=== PATIENT | male | born 1935 | race Hispanic/Latino ===

== ENCOUNTER 2020-11-17 08:46 | Outpatient (CLI) | payer MEDICARE ==
[2020-11-17 09:41] LABS: Blood Urea Nitrogen 10 mg/dL (9-20)
--- NOTE | 2020-11-17 10:53 | Cat Scan Report ---
CTA NECK WITH CONTRAST HISTORY: COMPARISON: None. TECHNIQUE: Routine CTA of the neck was performed. 3-D/MIP reformats were postprocessed. Percentage s tenosis is determined by direct quantitative measurements of diseased internal carotid artery diamete r compared with normal distal internal carotid artery reference segments or by criteria similar to NA SCET where applicable.All CT scans at this location are performed using CT dose reduction for ALARA b y means of automated exposure control CONTRAST: 100 ml of Omnipaque 350 FINDINGS: Aortic arch: No significant abnormality. Cervical vertebral arteries: No significant abnormality. Common carotid arteries: No significant abnormality. Carotid bifurcations: Right Carotid bifurcation: Approximately 2 cm long densely calcified atherosclerotic plaque (calcific ation thickness of 6 mm) in the right common carotid artery extending into proximal internal and exte rnal carotid artery; lumen of the right internal carotid artery is severely stenotic (over 80%); no a djacent inflammatory changes Left carotid bifurcation: Normal Cervical internal carotid arteries: No significant abnormality. Additional findings: Opacified left maxillary sinus IMPRESSION: 1. Right carotid bifurcation: 2 cm long densely calcified (calcification thickness 6 mm) plaque in th e distal right common carotid artery extending towards the both internal and external carotid artery is resulting in severe stenoses (80%) Left carotid bifurcation normal Signer Name: Alex Mason MD Signed: 11/17/2020 10:49 AM Workstation Name: [id number]
== END 2020-11-17 08:47 | disposition home or self-care (01) ==
LOC: CT 08:46
PROVIDERS: ATTEND Internal Medicine
DX: I65.21 Occlusion and stenosis of right carotid artery (principal)
CPT/HCPCS: 36415; 70498; 82565; 84520; Q9967

== ENCOUNTER 2021-08-25 06:01 | Observation (INO) | payer MEDICARE ==
--- NOTE | 2021-08-23 11:20 | Anesthesia Consultation ---
Anesthesia Consult and Med Hx Date of service: 08/25/21 - Airway Anesthetic Teeth Evaluation: Good ROM Head & Neck: Inadequate (Poor extension) Mental/Hyoid Distance: Adequate Mallampati Class: Class II Intubation Access Assessment: Probably Good - Pre-Operative Health Status ASA Pre-Surgery Classification: ASA3 Proposed Anesthetic Plan: General (Pt requests GA) Nerve Block: AC - Pulmonary Hx Smoking: Yes (STOPPED X 50-60 YRS) Hx Sleep Apnea: No (SARAH PRE SCREEN HIGH RISK) - Cardiovascular System Hx Hypertension: No Hx Peripheral Vascular Disease: Yes (CAROTID STENOSIS) - Central Nervous System Hx Psychiatric Problems: Yes (Depression) - Gastrointestinal Hx Gastroesophageal Reflux Disease: No - Hematic Hx Anemia: No - Other Systems Hx Cancer: No Hx Obesity: No - Additional Comments Anesthesia Medical History Comments: Cardiac clearance on chart
[~2021-08-25 06:01] MED LIST: ACETAMINOPHEN 325 MG TAB PO NR; CELECOXIB 200 MG CAP PO NR; LACTATED RINGERS 1,000 ML IV SCH; MAGNESIUM OXIDE 400 MG TAB PO NR; MIDAZOLAM 2 MG/2 ML INJ IV NR; PREGABALIN 50 MG CAP PO NR; fentaNYL 100 MCG/2 ML INJ IV NR
[2021-08-25] MEDS ORDERED: METOPROLOL TARTRATE 50 MG TAB PO ONE (07:14)
[2021-08-25] MEDS ORDERED: BUPIVACAINE/PF (0.5%) 5 MG/1 ML 30 ML VIAL INFILTRATI ONE ×2 (07:29→09:44)
[2021-08-25] MEDS ORDERED: TRANEXAMIC ACID 1,000 MG/10 ML ONE (07:29)
[2021-08-25] MEDS ORDERED: KETOROLAC 30 MG/1 ML INJ ONE ×2 (07:29→11:09)
[2021-08-25] MEDS ORDERED: methylPREDNISolone ACETATE 40 MG/1 ML INJ ONE (07:29)
[2021-08-25] MEDS ORDERED: METOPROLOL TARTRATE 25 MG TAB PO SCH (07:30)
[2021-08-25] MEDS ORDERED: NEOMY 40 MG/POLYMYXIN B 200,000 UNITS/ML (GU) AMPULE IR ONE ×2 (07:30→09:43)
[2021-08-25] MEDS ORDERED: SODIUM CHLORIDE 0.9% 50 ML ONE (07:30)
[2021-08-25] MEDS ORDERED: BUPIVACAINE/PF (0.25%) 2.5 MG/ML 30 ML VIAL INFILTRATI ONE (07:44)
[2021-08-25] MEDS ORDERED: dexAMETHasone 4 MG/ML VIAL ONE (07:44)
[2021-08-25] MEDS ORDERED: propofoL 200 MG/20 ML VIAL IV ONE (07:48)
[2021-08-25] MEDS ORDERED: HYDROmorphone 1 MG/1 ML INJ ONE (07:48)
[2021-08-25] MEDS ORDERED: SODIUM CHLORIDE 0.9% 100 ML ONE ×2 (07:50→10:15)
[2021-08-25] MEDS ORDERED: MORPHINE 4 MG/1 ML INJ IV PRN (07:52)
[2021-08-25] MEDS ORDERED: traMADol 50 MG TAB PO PRN ×2 (07:52)
[2021-08-25] MEDS ORDERED: ONDANSETRON 4 MG/2 ML INJ IV PRN ×2 (07:52→07:56)
[2021-08-25] MEDS ORDERED: LIDOCAINE MPF (2%) 20 MG/1 ML VIAL 5 ML ONE (07:54)
[2021-08-25] MEDS ORDERED: HYDROmorphone 0.5 MG/0.5 ML INJ IV PRN ×2 (07:56)
--- NOTE | 2021-08-25 07:56 | Anesthesia Day of Surgery ---
Anesthesia Day of Surgery - Day of Surgery Patient Examined: Yes Patient H&P Reviewed: Yes Patient is NPO: Yes
[2021-08-25] MEDS ORDERED: ceFAZolin/STERILE WATER 2 GM/20 ML SYRINGE IV NR (08:00)
[2021-08-25] MEDS ORDERED: MORPHINE 2 MG/1 ML INJ IV PRN (08:29)
[2021-08-25] MEDS ORDERED: MORPHINE 10 MG/1 ML INJ ONE (09:10)
[2021-08-25] MEDS ORDERED: PHENYLEPHRINE/NS 1,000 MCG/10 ML SYRINGE (OR USE) IV ONE (09:42)
[2021-08-25] MEDS ORDERED: methylPREDNISolone ACETATE 40 MG/1 ML INJ INTRA-ARTI ONE (09:43)
[2021-08-25] MEDS ORDERED: SODIUM CHLORIDE 0.9% IRR 1,500 ML BOTTLE IR ONE (09:44)
[2021-08-25] MEDS ORDERED: MORPHINE 10 MG/1 ML INJ IM ONE (09:44)
[2021-08-25] MEDS ORDERED: TRANEXAMIC ACID 1,000 MG/10 ML IV ONE (09:45)
[2021-08-25] MEDS ORDERED: SODIUM CHLORIDE 0.9% IRRIG SOLN 2000 ML IR ONE (09:45)
[2021-08-25] MEDS ORDERED: WATER FOR IRRIG STERILE 1,500 ML BOTTLE IR ONE (09:46)
[2021-08-25] MEDS ORDERED: ONDANSETRON 4 MG/2 ML INJ ONE (11:00)
--- NOTE | 2021-08-25 11:08 | Post Operative Note ---
Date of procedure: 08/25/21 Pre-op diagnosis: Right knee osteoarthritis Post-op diagnosis: same Findings: Severe tricompartmental right knee osteoarthritis Procedure: Right total knee replacement Anesthesia: GETA Surgeon: JORGE DUGGAN Ultrasound Coordinator: SEBASTIAN OSULLIVAN Estimated blood loss: other (30cc) Pathology: none Specimen disposition: to lab Condition: stable Disposition: PACU
--- NOTE | 2021-08-25 11:19 | Operative Report ---
Operative Report Operative Report: Patient Name: Yaya Pérez Date of : 1935 Date of Surgery: 08/25/21 Pre-Operative Diagnosis: Right knee osteoarthritis Post-Operative Diagnosis: Right knee osteoarthritis Procedure: Right total knee replacement Surgeon: Bradford Mayberry DO Assistants: Christine Marcelo PA-C EBL: 30cc Complications: None Anesthesia: GETA, plus regional nerve block for post-operative pain control Implants: Medacta GMK Sphere size 4+ femur, size 4 tibia, 10mm CS polyethylene insert, size 3 patella Tourniquet Time: 90 minutes Indications: This is an 85-year-old male who presented with worsening right knee pain over the last 3 years. Pain is worse with weight bearing. He also has had frequent falls because of the pain and resulting weakness in his right knee. Patient has difficulty ambulating, using stairs because of the pain. Patient had tried nonoperative management including physical therapy/home exercises, joint injections, anti-inflammatory medications, activity modifications, ambulating with assistive devices without any lasting pain relief. Patient elected to undergo right total knee replacement. Patient was met in the preoperative holding area where the risk, benefits, alternatives to surgery were explained to the patient in detail. Risks include but are not limited to infec tion, bleeding, neurovascular injury, soft tissue injury, infection, need for further surgery, need for revision surgery, fracture, dislocation, pain, stiffness, loss of limb, loss of life. Informed consent was obtained after all questions were thoroughly answered. Patient has a past medical history significant for hypertension, TIA-on Plavix, high cholesterol, right carotid artery stenosis, past surgical history of left carotid endarterectomy. Procedure: Patient was placed supine on the operating room table and all bony prominences were well-padded. The right lower extremity was prepped and draped in the usual sterile fashion. A timeout was performed by all members of the operating room team. An Esmarch bandage was used to wrap the right lower extremity and the tourniquet was inflated to 250 mmHg. A midline incision was made over the right knee. Sharp dissection was used to go through the skin and the subcutaneous fat. Medial and lateral fasciocutaneous flaps were then elevated. Using electrocautery a medial parapatellar arthrotomy was then performed. Upon inspection of the knee joint there was severe osteoarthritis in the medial, lateral and patellofemoral compartments. The ACL and the PCL as well as the meniscal remnants were then removed. An opening reamer was then used to open up the distal femoral canal. An intramedullary diego was placed approximately 10 cm up the femoral canal. The distal cutting jig and block were then secured to the distal femur. Using an oscillating saw the distal femoral resection was then performed. Using calipers we measured the thickness of the cut distal medial and lateral femoral condyles. Taking into account cartilage loss and the saw kerf we made sure that the amount of resection equaled the thickness of our implant. The distal cutting block was removed. A femoral sizer was used to measure the size of the femoral implant. Once we had the appropriate size we secured the 4-in-1 cutting block to the distal femur using 2 bone screws. We then made our medial and lateral posterior femoral condylar cuts. Again we used a caliper to measure the thickness of our cuts while taking into account cartilage loss and saw kerf, thickness equaled that of the implant. Next, using an oscillating saw, we made the anterior femoral cut as well as the anterior and posterior chamfer cuts. We turned our attention to the proximal tibia. We then secured the extra medullary tibial cutting jig to the leg. We then matched the [place] slope of the proximal tibia with the guide. We also made sure that the tibial cutting guide was parallel to the articular surface taking into account any cartilage wear and bone loss. Using the 8 mm stylus at the base of the tibial spines on the medial and lateral side we then adjusted the tibial guide to the proper resection depth. We secured the proximal tibial cutting jig to the proximal tibial bone using 3 pins. An oscillating saw was then used to make our proximal tibial resection. Next using a laminar traffic sign erection supervisor the knee joint was opened up in 90 degrees of flexion. Using a 0.5 inch curved osteotome the posterior osteophytes were removed from both the posterior medial distal femur as well as posterior lateral distal femur. The meniscal remnants were then removed. Next the tibia was anteriorly subluxed and a size 4 tibial guide was then placed in the appropriate amount of rotation parallel to the rotational axis of the tibia of the [place] knee. Tibial guide was secured to the proximal tibia using 2 pins. The tibia was then drilled and punched in the proper rotation. Trial components were then placed on the tibia as well as the femur. The knee was taken through the full range of motion and found to be stable. The knee was able to be flexed to 135 degrees and extension to 0 degrees. There is no varus or valgus laxity with the knee in full extension. The knee was flexed to 30 degrees and again varus and valgus stress was applied. There was no gapping of the medial side with the knee 30 degrees of flexion, the lateral side had approximately 2 mm of gapping which was consistent with a kinematics of the [place] knee joint. The patella was also tracking well within the trochlear groove with no lateral tilt or subluxation. The patella was then everted and cut down to 15 mm using the patellar cutting guide. 3 holes were drilled into the patella and the trial button was placed. Again the knee was taken through the full range of motion with good patella tracking. At this point we were satisfied with the overall range of motion the stability of the patella tracking as well as the knee. All trials were then removed. The real components were opened. The knee was copiously irrigated with antibiotic saline and then dried. A local anesthetic cocktail was then injected into the posterior capsule as well as the surrounding deep tissues of the knee joint. 2 bags of bone cement were mixed. Once the cement was in a doughy state the real components were cemented into place starting with the tibia followed by the femur and then the patella. All excess cement was then removed using curettes from around the implants. Once the cement had completely hardened the knee was irrigated again with diluted Betadine mixed with normal saline. The knee was then copiously irrigated with normal saline using pulsatile lavage. The tourniquet was let down. There was no active bleeding. Electrocautery was used throughout the case to maintain meticulous hemostasis. The arthrotomy was then closed in flexion in a watertight fashion using #1 Vicryl suture in an interrupted fashion. The arthrotomy was then reinforced with a #1 stratafix PDS suture. The deep fascial layer was closed with #1 Vicryl. The subcutaneous layers were closed with 2-0 Vicryl and the subcuticular layer was closed with 3-0 Monocryl. The wound was then covered with an occlusive dressing. The operative lower extremity was wrapped in an Zohaib wrap from the foot all the way up to the proximal thigh. The sponge and needle count were correct in the case. The patient was then awakened by the anesthesia team and taken to the recovery room in stable condition. The patient's total knee arthroplasty was performed using a calipered kinematically aligned technique.
[2021-08-25] MEDS: SODIUM CHLORIDE 0.9% 1000 ML 1,000 ML IV SCH (13:31)
[2021-08-25] MEDS: ACETAMINOPHEN 325 MG TAB PO SCH ×3 (13:38→23:09)
[2021-08-25] MEDS ORDERED: NON-FORMULARY EACH (Omeprazole [Omeprazole] 20 MG Capsule.Dr) PO SCH (13:45)
--- NOTE | 2021-08-25 13:54 | Consultation ---
History of Present Illness - Reason for Consult Consult date: 08/25/21 Medical management Requesting physician: JORGE DUGGAN - History of Present Illness Patient is s/p right TKA. Patient has past medical history of coronary artery disease, hyperlipidemia, hypertension and GERD. Also osteoarthritis. Patient is doing well postop. No signs of. Able to eat. Pain is moderate. About 5 on a scale of 1-10. Past History Past Medical History: arthritis, GERD, hypertension, hyperlipidemia, other Past Surgical History: total knee replacement (Right) Social history: lives with family, full code Family history: hypertension Medications and Allergies Allergies Allergy/AdvReac Type Severity Reaction Status Date / Time latex Allergy Rash Verified 08/22/21 16:15 Home Medications Medication Instructions Recorded Confirmed Last Taken Type Atorvastatin [Lipitor Tab] 80 mg PO QHS 08/22/21 08/25/21 08/24/21 20:00 History Clopidogrel [Plavix] 75 mg PO QDAY 08/22/21 08/25/21 08/22/21 09:00 History Metoprolol [Lopressor] 25 mg PO BID 08/23/21 08/25/21 08/25/21 07:30 History Omeprazole 20 mg PO DAILY 08/23/21 08/25/21 08/24/21 09:00 History lisinopriL [Zestril TAB] 40 mg PO QDAY 08/23/21 08/25/21 08/24/21 09:00 History Active Meds: Active Medications Acetaminophen (Acetaminophen 325 Mg Tab) 650 mg PO ONCE NR Stop: 08/25/21 20:00 Last Admin: 08/25/21 06:50 Dose: 650 mg Acetaminophen (Acetaminophen 325 Mg Tab) 650 mg PO Q6H [facility] Aspirin (Aspirin Ec 81 Mg Tab) 81 mg PO BID JOSE Atorvastatin Calcium (Atorvastatin 40 Mg Tab) 80 mg PO QHS [facility] Cefazolin Sodium (Cefazolin/Sterile Water 2 Gm/20 Ml Syringe) 2 gm IV PREOP NR Stop: 08/25/21 23:59 Celecoxib (Celecoxib 200 Mg Cap) 200 mg PO PREOP NR Stop: 08/25/21 20:00 Last Admin: 08/25/21 06:50 Dose: 200 mg Clopidogrel Bisulfate (Clopidogrel 75 Mg Tab) 75 mg PO QDAY JOSE Docusate Sodium (Docusate Sodium 100 Mg Cap) 100 mg PO BID JOSE Fentanyl (Fentanyl 100 Mcg/2 Ml Inj) 100 mcg IV ONCE NR Stop: 08/25/21 20:00 Last Admin: 08/25/21 07:47 Dose: 50 mcg Hydromorphone HCl (Hydromorphone 0.5 Mg/0.5 Ml Inj) 0.25 mg IV Q10MIN PRN PRN Reason: Pain, Moderate (4-6) Stop: 08/25/21 20:00 Hydromorphone HCl (Hydromorphone 0.5 Mg/0.5 Ml Inj) 0.5 mg IV Q10MIN PRN PRN Reason: Pain , Severe (7-10) Stop: 08/25/21 20:00 Lactated Ringer's (Lactated Ringers) 1,000 mls @ 100 mls/hr IV DIRECT JOSE Stop: 08/25/21 20:00 Last Admin: 08/25/21 07:10 Dose: 100 mls/hr Sodium Chloride (Nacl 0.9% 1000 Ml) 1,000 mls @ 75 mls/hr IV DIRECT JOSE Last Admin: 08/25/21 13:31 Dose: 75 mls/hr Cefazolin Sodium (Ancef/Ns 1 Gm/50 Ml) 1 gm in 50 mls @ 100 mls/hr IV Q8H JOSE Stop: 08/26/21 00:29 Ketorolac Tromethamine (Ketorolac 30 Mg/1 Ml Inj) 15 mg IV Q6H [facility] Stop: 08/25/21 19:01 Lisinopril (Lisinopril 40 Mg Tab) 40 mg PO QDAY [facility] Magnesium Oxide (Magnesium Oxide 400 Mg Tab) 400 mg PO ONCE NR Stop: 08/25/21 20:00 Last Admin: 08/25/21 06:50 Dose: 400 mg Metoprolol Tartrate (Metoprolol Tartrate 25 Mg Tab) 25 mg PO ONCE@0730 [facility] Stop: 08/25/21 15:00 Last Admin: 08/25/21 07:33 Dose: 25 mg Metoprolol Tartrate (Metoprolol Tartrate 25 Mg Tab) 25 mg PO BID [facility] Midazolam HCl (Midazolam 2 Mg/2 Ml Inj) 2 mg IV PREOP NR Stop: 08/25/21 23:59 Last Admin: 08/25/21 07:47 Dose: 2 mg Miscellaneous Medication (Omeprazole [Omeprazole]) 20 mg PO DAILY [facility] Morphine Sulfate (Morphine 2 Mg/1 Ml Inj) 1 mg IV Q4H PRN PRN Reason: Pain , Severe (7-10) Multivitamins (Multivitamins ,Therapeutic Tab) 1 each PO QDAY [facility] Ondansetron HCl (Ondansetron 4 Mg/2 Ml Inj) 4 mg IV ONCE PRN PRN Reason: Nausea And Vomiting Stop: 08/25/21 18:00 Ondansetron HCl (Ondansetron 4 Mg/2 Ml Inj) 4 mg IV Q8H PRN PRN Reason: Nausea And Vomiting Pregabalin (Pregabalin 50 Mg Cap) 50 mg PO ONCE NR Stop: 08/25/21 20:00 Last Admin: 08/25/21 06:50 Dose: 50 mg Sodium Chloride (Sodium Chloride 0.9% 10 Ml Flush Syringe) 10 ml IV PRN PRN PRN Reason: LINE FLUSH Stop: 08/27/21 07:51 Tramadol HCl (Tramadol 50 Mg Tab) 50 mg PO Q6H PRN PRN Reason: Pain , Severe (7-10) Tramadol HCl (Tramadol 50 Mg Tab) 25 mg PO Q6H PRN PRN Reason: Pain, Moderate (4-6) Review of Systems All systems: negative Exam - Constitutional Vitals: Temp Pulse Resp BP Pulse Ox 97.4 F L 59 L 14 108/41 99 08/25/21 13:15 08/25/21 13:15 08/25/21 13:15 08/25/21 13:15 08/25/21 13:15 General appearance: Present: no acute distress, well-nourished - EENT Eyes: Present: PERRL ENT: hearing intact, clear oral mucosa - Neck Neck: Present: supple, normal ROM - Respiratory Respiratory effort: normal Respiratory: bilateral: CTA - Cardiovascular Heart rate: 78 Rhythm: regular Heart Sounds: Present: S1 & S2. Absent: rub, click - Extremities Extremities: pulses symmetrical, No edema Peripheral Pulses: within normal limits - Abdominal General gastrointestinal: Present: soft, non-tender, non-distended, normal bowel sounds Male genitourinary: Present: normal - Integumentary Integumentary: Present: clear, warm, dry - Musculoskeletal Musculoskeletal: gait normal, strength equal bilaterally - Psychiatric Psychiatric: appropriate mood/affect, intact judgment & insight - Neurologic Neurologic: CNII-XII intact, moves all extremities - Allied Health Allied health notes reviewed: nursing, case management Assessment and Plan - Patient Problems (1) S/P total knee arthroplasty Current Visit: Yes Status: Acute Qualifiers: Laterality: right Qualified Code(s): Z96.651 - Presence of right artificial knee joint Plan to address problem: Postop patient is doing well PT and OT and possible discharge tomorrow (2) CAD (coronary artery disease) Current Visit: Yes Status: Chronic Qualifiers: Coronary Disease-Associated Artery/Lesion type: [place] artery [place] vs. transplanted heart: [place] heart Plan to address problem: Will hold Plavix for 48 hours Discharge on Eliquis 2.5 twice daily for 5 weeks (3) Hyperlipidemia Current Visit: Yes Status: Chronic Qualifiers: Hyperlipidemia type: mixed hyperlipidemia Qualified Code(s): E78.2 - Mixed hyperlipidemia Plan to address problem: Continue statins (4) Hypertension Current Visit: Yes Status: Chronic Qualifiers: Hypertension type: primary hypertension Qualified Code(s): I10 - Essential (primary) hypertension Plan to address problem: Continue antihypertensives and adjust medications as necessary (5) GERD (gastroesophageal reflux disease) Current Visit: Yes Status: Chronic Qualifiers: Esophagitis presence: with esophagitis Esophagitis bleeding: without hemorrhage Qualified Code(s): K21.00 - Gastro-esophageal reflux disease with esophagitis, without bleeding Plan to address problem: On PPIs (6) DVT prophylaxis Current Visit: Yes Status: Acute Plan to address problem: Patient to be discharged Eliquis 2.5 twice daily for 5 weeks (7) Advance care planning Current Visit: Yes Status: Acute Plan to address problem: Disease management, diagnosis prognosis discussed. Patient declines rescheduling. Care plan +30 minutes.
--- NOTE | 2021-08-25 14:23 | Post Anesthesia Evaluation ---
- Post Anesthesia Evaluation Patient Participated: Yes Airway Patent: Yes Stable Respiratory Function: Yes Nausea/Vomiting: No Temp > 96.8F: Yes Pain Manageable: Yes Adequeate Hydration: Yes Anesthesia Complications: No Block Receding Appropriately: Yes Patient on Ventilator: No
--- NOTE | 2021-08-25 14:34 | XRay Report ---
Right knee 2 views INDICATION: Knee replacement IMPRESSION: Right total knee arthroplasty is satisfactory in position and alignment. Soft tissue gas and swelling from recent surgery. Please see operative note. Signer Name: Moises Simon MD Signed: 08/25/2021 2:29 PM Workstation Name: [id number]
[2021-08-25] MEDS: LISINOPRIL 40 MG TAB PO SCH (16:07)
[2021-08-25] MEDS: KETOROLAC 30 MG/1 ML INJ IV SCH ×2 (16:07→22:11)
[2021-08-25] MEDS: DOCUSATE SODIUM 100 MG CAP PO SCH ×2 (16:07→22:10)
[2021-08-25] MEDS: PANTOPRAZOLE 20 MG TAB PO SCH (17:15)
[2021-08-25] MEDS: ceFAZolin/NS 1 GM/50 ML 1 GM/50 ML BAG IV SCH ×2 (17:16→23:09)
[2021-08-25] MEDS ORDERED: ASPIRIN 325 MG TAB PO SCH (22:00)
[2021-08-25] MEDS: ASPIRIN EC 81 MG TAB PO SCH (22:11)
[2021-08-25 22:36] VITALS: BP 125/47
[2021-08-25] MEDS: METOPROLOL TARTRATE 25 MG TAB PO SCH (23:09)
[2021-08-26] MEDS: SODIUM CHLORIDE 0.9% 1000 ML 1,000 ML IV SCH (02:57)
[2021-08-26] MEDS: ACETAMINOPHEN 325 MG TAB PO SCH ×2 (05:37→14:36)
[2021-08-26 05:48] LABS: Hematocrit 29.3 % (35.5-45.6); Hemoglobin 9.7 gm/dl (11.8-15.2)
[2021-08-26 06:00] LABS: Blood Urea Nitrogen 16 mg/dL (9-20); Calcium 8.1 mg/dL (8.4-10.2); Hemolysis Index 2
[2021-08-26 06:01] LABS: BUN/Creatinine Ratio 23
[2021-08-26] MEDS ORDERED: CLOPIDOGREL 75 MG TAB PO SCH (10:00)
[2021-08-26] MEDS ORDERED: MULTIVITAMINS ,THERAPEUTIC TAB PO SCH (10:00)
[2021-08-26] MEDS: ASPIRIN EC 81 MG TAB PO SCH (10:14)
[2021-08-26] MEDS: METOPROLOL TARTRATE 25 MG TAB PO SCH (10:14)
[2021-08-26] MEDS: LISINOPRIL 40 MG TAB PO SCH (10:14)
[2021-08-26] MEDS: DOCUSATE SODIUM 100 MG CAP PO SCH (10:14)
--- NOTE | 2021-08-26 12:51 | Progress Note ---
Assessment and Plan 85-year-old male status post right total knee replacement postop day #1. PMH: coronary artery disease (on plavix), hyperlipidemia, hypertension and GERD. -Overall patient is doing very well today. Able to clear physical therapy for safe discharge to home. -Continue oral diet -Weightbearing as tolerated right lower extremity -Continue current pain control regimen -Continue physical therapy -Patient restarted on Plavix 75 mg p.o. daily today and ASA 81mg PO -Appreciate medical consult for postop medical management of comorbidities. -Discharge plan to home today. Postop discharge medication prescriptions were given to the patient in the office. Subjective Date of service: 08/26/21 Principal diagnosis: s/p right total knee replacement Interval history: Patient is s/p right TKA POD#1. Patient seen and examined at bedside with daughter present. Overall patient states he is doing very well. Patient states his knee pain is currently a 3 or 4 out of 10. Patient is tolerating oral diet. Denies any nausea or vomiting. Denies any fevers, chills, chest pain, shortness of breath. Patient states he is able to work with physical therapy today and ambulate into the hallway using a walker. No significant overnight events reported. Patient would like to go home today. Objective Vital signs: Vital Signs - 12hr 08/26/21 02:16 O2 Sat by Pulse 98 Oximetry Narrative Exam: General: No acute distress, awake and alert. Hard of hearing Breathing comfortably Right lower extremity: Dressings are clean, dry, intact. Ankle plantarflexion, dorsiflexion, EHL motor function intact. L4-S1 sensation to light touch intact. (+) DP Pulse. Incision: clean and dry Weight bearing status: full - Allied Health Allied health notes reviewed: PT - Labs CBC & BMP: 08/26/21 05:15 08/26/21 05:15 Labs: Abnormal lab results 08/26/21 08/26/21 Range/Units 05:15 05:15 Hgb 9.7 L (11.8-15.2) gm/dl Hct 29.3 L (35.5-45.6) % Creatinine 0.7 L (0.8-1.3) mg/dL Glucose 157 H (75-100) mg/dL Calcium 8.1 L (8.4-10.2) mg/dL
--- NOTE | 2021-08-26 12:55 | Discharge Summary ---
Providers - Providers Date of Admission: 08/25/21 07:52 Date of discharge: 08/26/21 Attending physician: SCOTT ELIZABETH 08/25/21 07:52 Consult to Case Management [CONS] Routine Services Needed at Discharge: Physical Therapy Notified:: CM Consult to Physician [CONS] Routine Comment: Consulting Provider: SCOTT ELIZABETH Physician Instructions: Reason For Exam: post-op medical management Physical Therapy Evaluation and Treat [CONS] Routine Comment: s/p right total knee replacement Reason For Exam: s/p right total knee replacement Mode of Transport?: Walker Weight bearing status?: Full wt bearing Assistive devices?: Yes: rolling walker If so list: Walker 08/26/21 09:55 Physical Therapy Evaluation and Treat [CONS] Stat Comment: Eval and Treat Reason For Exam: Outpatient Physical Therapy Hospitalization Reason for admission: Acute care following right total knee replacement Condition: Stable Procedures: Right total knee arthroplasty done on August 25, 2021 Hospital course: Patient was admitted to the hospital for acute care following right total knee replacement. Patient tolerated oral diet. Pain was controlled with oral and IV pain medications. Patient was started on Plavix 85 mg p.o. and aspirin 81 mg p.o. twice daily on postop day #1. Patient was able to work with physical therapy on postop day #0 and on postop day 1. Patient was gradually cleared for safe discharge to home. On postop day #1 patient had acute blood loss anemia- expected from major surgery. Hemoglobin was 9.7. Patient's vitals were stable and patient was asymptomatic. No further treatment needed aside from monitoring. Patient remained afebrile during his hospital stay. Hospitalist medicine team was consulted for comanagement of medical comorbidities postoperatively. Disposition: 01 HOME / SELF CARE / HOMELESS Final Discharge Diagnosis (Prints w/discharge instructions): Right total knee replacement Core Measure Documentation - Palliative Care Palliative Care/ Comfort Measures: Not Applicable - Core Measures Any of the following diagnoses?: none Exam - Constitutional Vitals: Temp Pulse Resp BP Pulse Ox 97.9 F 67 19 125/47 98 08/25/21 22:35 08/25/21 22:35 08/25/21 22:35 08/25/21 22:35 08/26/21 02:16 General appearance: Present: no acute distress - EENT Eyes: Present: EOM intact ENT: hearing decreased - Neck Neck: Present: supple - Respiratory Respiratory effort: normal - Extremities Extremities: pulses intact Peripheral Pulses: within normal limits - Abdominal General gastrointestinal: Present: soft, non-tender Male genitourinary: Present: deferred - Rectal Rectal Exam: deferred - Integumentary Integumentary: Present: clear, warm - Musculoskeletal Musculoskeletal: right sided weakness - Psychiatric Psychiatric: appropriate mood/affect - Neurologic Neurologic: moves all extremities - Allied Health Allied health notes reviewed: nursing, PT Plan Activity: advance as tolerated, no driving until cleared by PCP, fall precautions Weight Bearing Status: Full Weight Bearing Diet: regular Wound: keep clean and dry, per your surgeon's advice Special Instructions: no heavy lifting, physical therapy Durable Medical Equipment Needed Upon Discharge: Walker-Rolling Additional Instructions: Follow printed discharge instructions given by surgeon. Follow up with: DARRYL BUTT [Other] - 7 Days JORGE DUGGAN DO [Staff Physician] - 09/02/21
[2021-08-26] MEDS: PANTOPRAZOLE 20 MG TAB PO SCH (14:35)
== END 2021-08-26 13:30 | disposition home or self-care (01) ==
LOC: OR 06:01 → 3A 07:52 → EDSTATUS 08:00
PROVIDERS: ADMIT Orthopaedic Surgery; ATTEND Internal Medicine
DX: M17.11 Unilateral primary osteoarthritis, right knee (principal); Z20.822 Contact with and (suspected) exposure to COVID-19; Z79.899 Other long term (current) drug therapy; Z98.890 Other specified postprocedural states
CPT/HCPCS: 27447; 36415; 64447; 73560; 80048; 85014; 85018; 88305; 88311; 96365; 96366; 96375; 97110; 97116; 97161; C1713; C1776; G0378; G0379; J0690; J0696; J1030; J1100; J1170; J1885; J2250; J2270; J2370; J2405; J2704; J3010; J3490; J7030; J7120; U0003; 88304